=== PATIENT | male | born 1960 | race American Indian/Alaskan Native ===

== ENCOUNTER 2022-05-15 13:30 | Inpatient (IN) | payer SELFPAY ==
--- NOTE | 2022-05-15 14:04 | Event Note ---
Date: 05/15/22 Medical screening examination note: 61-year-old gentleman brought to the hospital by EMS with a complaint of nonspecific chest pain. Patient is awake and alert, protecting airway, and moving 4 extremities. Obtain appropriate laboratory studies, EKG, x-ray the chest. EMS documentation not available at time of chart dictation Detailed history and physical to be performed by myself or oncoming ER provider
--- NOTE | 2022-05-15 14:42 | XRay Report ---
CHEST 2 VIEWS INDICATION / CLINICAL INFORMATION: Chest Pain. COMPARISON: None available. FINDINGS: SUPPORT DEVICES: None. HEART / MEDIASTINUM: Mild cardiomegaly and tortuosity of the aorta. Prior median sternotomy. LUNGS / PLEURA: No significant pulmonary or pleural abnormality. No pneumothorax. ADDITIONAL FINDINGS: No significant additional findings. IMPRESSION: 1. Mild cardiomegaly and tortuosity of the aorta. No acute process identified. Signer Name: Kaitlyn Leach MD Signed: 05/15/2022 2:38 PM Workstation Name: [email or web address]
[2022-05-15 14:57] LABS: Eosinophils # (Auto) 0.2 K/mm3 (0.0-0.4); Eosinophils % (Auto) 3.8 % (0.0-4.3); Hematocrit 36.9 % (35.5-45.6); Hemoglobin 12.2 gm/dl (11.8-15.2); Lymphocytes # (Auto) 1.3 K/mm3 (1.2-5.4); Lymphocytes % (Auto) 28.2 % (13.4-35.0); Mean Corpuscular HGB Conc 33 % (32-34); Mean Corpuscular Volume 91 fl (84-94); Monocytes # (Auto) 0.5 K/mm3 (0.0-0.8); Platelet Count 145 K/mm3 (140-440); Red Blood Count 4.05 M/mm3 (3.65-5.03); Red Cell Distribution Width 15.4 % (13.2-15.2)
[2022-05-15 15:06] LABS: INR 0.91 (0.87-1.13); Partial Thromboplastin Time 27.5 Sec. (24.2-36.6)
[2022-05-15] MEDS ORDERED: PANTOPRAZOLE 40 MG INJ IV ONE (15:27)
[2022-05-15] MEDS ORDERED: NITROGLYCERIN 0.4 MG TAB SUBL SL PRN (15:27)
--- NOTE | 2022-05-15 15:29 | Emergency Department Report ---
ED General Adult HPI - General Chief complaint: Chest Pain Stated complaint: CHEST PAIN Time Seen by Provider: 05/15/22 14:03 Source: patient, EMS ( EMS documentation not available at time of chart dictation ), RN notes reviewed Mode of arrival: Stretcher Limitations: No Limitations, Other (The patient is a poor historian) - History of Present Illness Initial comments: The patient was evaluated in the emergency department for symptoms described in the history of present illness. He/she was evaluated in the context of the global COVID-19 pandemic, which necessitated consideration that the patient might be at risk for infection with the virus that causes COVID-19. Institutional protocols and algorithms that pertain to the evaluation of patients at risk for COVID-19 are in a state of rapid change based on information released by regulatory bodies including the CDC and federal and state organizations. These policies and algorithms were followed during the patient's care in the emergency department. Please note that these policies, procedures and recommendations changed on a rapid basis. This is a 61-year-old gentleman with a body mass index of 37, additional past medical history of hypertension, high cholesterol, CAD, with multiple stents. 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 He has recently relocated to this state from [place]. He reports that he ran out of his medications, which include potassium, metoprolol, Flomax, eliquis, Lasix, atorvastatin and Plavix. He does not know why he takes Eliquis. He presents to the department today with a complaint of central chest pain, dizziness and lightheadedness, which does not radiate to the back, arms or neck. He denies vomiting and diaphoresis. He feels lightheaded like he might pass out. He reports multiple recent truck trips and drives about a month to a month and a half ago. He is not currently on a CPAP. He denies hematemesis and bright red blood per rectum. He has not used erectile dysfunction medication recently. No recent cardiac restratification, stress test or catheterization that he is aware of. He does not have a local primary care doctor or ski technician. He reports that he ran out of his medications about 9 days ago. He reports that he is currently staying with a friend. -: Gradual Location: chest Severity scale (0 -10): 6 Consistency: intermittent Improves with: none Worsens with: none - Related Data Allergies Allergy/AdvReac Type Severity Reaction Status Date / Time No Known Allergies Allergy Verified 05/15/22 19:07 ED Review of Systems ROS: Stated complaint: CHEST PAIN Other details as noted in HPI Constitutional: malaise, weakness. denies: fever Eyes: denies: eye discharge ENT: denies: epistaxis Respiratory: shortness of breath. denies: cough Cardiovascular: orthopnea, other (Lightheadedness and near syncope). denies: chest pain Gastrointestinal: denies: abdominal pain, hematemesis, melena, hematochezia Musculoskeletal: denies: back pain Neurological: denies: weakness ED Past Medical Hx - Past Medical History Previous Medical History?: Yes Hx Hypertension: Yes Additional medical history: CARDIAC STENTS ED Physical Exam - General Limitations: No Limitations General appearance: alert, in no apparent distress, obese - Head Head exam: Present: atraumatic, normocephalic - Eye Eye exam: Present: normal appearance, EOMI. Absent: nystagmus - ENT ENT exam: Present: normal exam, normal orophraynx, mucous membranes moist, normal external ear exam - Neck Neck exam: Present: normal inspection, full ROM. Absent: tenderness, meningismus - Respiratory Respiratory exam: Present: decreased breath sounds. Absent: respiratory distress, wheezes, rales, rhonchi, stridor, accessory muscle use - Cardiovascular Cardiovascular Exam: Present: normal rhythm, bradycardia, normal heart sounds, JVD. Absent: tachycardia, irregular rhythm, systolic murmur, diastolic murmur, rubs, gallop - GI/Abdominal GI/Abdominal exam: Present: soft. Absent: distended, tenderness, guarding, rebound, rigid, pulsatile mass - Rectal Rectal exam: Present: deferred - Extremities Exam Extremities exam: Present: normal inspection (Right lower extremity status post saphenous vein harvest. Scar site is chronic, healing well), full ROM, pedal edema (3+ edema in the bilateral lower extremities), other (2+ pulses noted in the bilateral upper and lower extremities. There is no palpable cord. negative Homans sign. Muscular compartments are soft. The pelvis is stable.). Absent: calf tenderness - Back Exam Back exam: Present: normal inspection. Absent: tenderness, CVA tenderness (R), CVA tenderness (L), paraspinal tenderness, vertebral tenderness - Neurological Exam Neurological exam: Present: alert, oriented X3, other (No facial droop. Tongue midline. Extraocular movements intact bilaterally. Facial sensation intact to light touch in V1, V2, V3 distribution bilaterally. 5 and a 5 strength in 4 extremities. Sensation intact to light touch in 4 extremities.). Absent: motor sensory deficit - Psychiatric Psychiatric exam: Present: normal affect, normal mood - Skin Skin exam: Present: warm, dry, intact, normal color. Absent: rash ED Course Vital Signs 05/15/22 05/15/22 05/15/22 13:31 13:55 14:01 Temperature 97.6 F Pulse Rate 60 57 L 55 L Respiratory 16 13 19 Rate Blood Pressure Blood Pressure 160/90 [Left] O2 Sat by Pulse 98 98 97 Oximetry 05/15/22 05/15/22 05/15/22 14:16 14:31 14:45 Temperature Pulse Rate 55 L 60 53 L Respiratory 15 21 16 Rate Blood Pressure Blood Pressure [Left] O2 Sat by Pulse 98 96 98 Oximetry 05/15/22 05/15/22 05/15/22 15:01 15:15 15:31 Temperature Pulse Rate 60 55 L 54 L Respiratory 20 19 17 Rate Blood Pressure Blood Pressure [Left] O2 Sat by Pulse 96 94 98 Oximetry 05/15/22 05/15/22 05/15/22 15:43 15:45 16:01 Temperature Pulse Rate 52 L 55 L Respiratory 18 19 Rate Blood Pressure Blood Pressure [Left] O2 Sat by Pulse 100 98 99 Oximetry 05/15/22 05/15/22 05/15/22 16:15 16:31 16:45 Temperature Pulse Rate 51 L 55 L 54 L Respiratory 17 19 19 Rate Blood Pressure 208/113 208/113 198/110 Blood Pressure [Left] O2 Sat by Pulse 99 98 98 Oximetry 05/15/22 05/15/22 05/15/22 17:00 17:15 17:31 Temperature Pulse Rate 55 L 61 57 L Respiratory 20 23 13 Rate Blood Pressure 208/113 198/110 Blood Pressure [Left] O2 Sat by Pulse 98 94 98 Oximetry 05/15/22 05/15/22 05/15/22 17:45 18:00 18:15 Temperature Pulse Rate 69 75 62 Respiratory 20 17 19 Rate Blood Pressure 187/131 198/110 187/131 Blood Pressure [Left] O2 Sat by Pulse 97 97 98 Oximetry 05/15/22 05/15/22 05/15/22 18:31 18:45 19:01 Temperature Pulse Rate 65 64 62 Respiratory 17 20 17 Rate Blood Pressure 187/131 178/102 187/131 Blood Pressure [Left] O2 Sat by Pulse 97 97 98 Oximetry - Reevaluation(s) Reevaluation #1: 05/15/22 16:49 Differential diagnosis, including but not limited to: Pulmonary hypertension, obstructive sleep apnea, acute coronary syndrome, GERD, gastritis, hiatal hernia, pneumonia, costochondritis, right-sided congestive heart failure, pulmonary embolism, obstructive sleep apnea Assessment and plan: 61-year-old gentleman complaining of chest pain, shortness of breath, lightheadedness. He most likely has undiagnosed obstructive sleep apnea, and right-sided cardiac dysfunction. He is not currently tachycardic, tachypneic, he does show evidence of decompensated congestive heart failure, manifested by JVD, and lower extremity edema. His EKG is abnormal, with a left axis deviation, and left anterior fascicular block. 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 A D-dimer is elevated, and a CT scan of the chest will be obtained. He is also found to be hypertensive, so we will administer Lasix, as well as hydralazine. We will reassess after initial data points result. Recommend admission to the medical service for hypertensive urgency, acute chest pain, acute congestive heart failure. He is agreeable to admission and hospitalization. Reevaluation #2: 05/15/22 16:52 Aspirin given by EMS 05/15/22 19:39 Dr Nils Plummer to admit to [facility] ED Medical Decision Making - Lab Data Result diagrams: 05/15/22 14:45 05/15/22 14:45 Vital Signs 05/15/22 05/15/22 05/15/22 13:31 13:55 14:01 Temperature 97.6 F Pulse Rate 60 57 L 55 L Respiratory 16 13 19 Rate Blood Pressure Blood Pressure 160/90 [Left] O2 Sat by Pulse 98 98 97 Oximetry 05/15/22 05/15/22 05/15/22 14:16 14:31 14:45 Temperature Pulse Rate 55 L 60 53 L Respiratory 15 21 16 Rate Blood Pressure Blood Pressure [Left] O2 Sat by Pulse 98 96 98 Oximetry 08/09/2405/15/22 05/15/22 15:01 15:15 15:31 Temperature Pulse Rate 60 55 L 54 L Respiratory 20 19 17 Rate Blood Pressure Blood Pressure [Left] O2 Sat by Pulse 96 94 98 Oximetry 05/15/22 05/15/22 05/15/22 15:43 15:45 16:01 Temperature Pulse Rate 52 L 55 L Respiratory 18 19 Rate Blood Pressure Blood Pressure [Left] O2 Sat by Pulse 100 98 99 Oximetry 05/15/22 16:15 Temperature Pulse Rate 51 L Respiratory 17 Rate Blood Pressure 208/113 Blood Pressure [Left] O2 Sat by Pulse 99 Oximetry - EKG Data -: EKG Interpreted by [facility] EKG shows normal: sinus rhythm Rate: normal - EKG Data When compared to previous EKG there are: previous EKG unavailable 05/15/22 16:45 There is no prior EKG available for comparison The EKG is interpreted at 13: 51 Bradycardia, sinus rhythm, rate 57 bpm. Left axis deviation, left anterior fascicular block, first-degree AV block, left ventricular hypertrophy. This is an abnormal EKG. This is not a STEMI - Radiology Data Radiology results: pending, report reviewed, image reviewed CHEST 2 VIEWS INDICATION / CLINICAL INFORMATION: Chest Pain. COMPARISON: None available. FINDINGS: SUPPORT DEVICES: None. HEART / MEDIASTINUM: Mild cardiomegaly and tortuosity of the aorta. Prior median sternotomy. LUNGS / PLEURA: No significant pulmonary or pleural abnormality. No pneumothorax. ADDITIONAL FINDINGS: No significant additional findings. IMPRESSION: 1. Mild cardiomegaly and tortuosity of the aorta. No acute process identified. Signer Name: Kaitlyn Leach MD Signed: 05/15/2022 1:38 PM Workstation Name: [id number] Critical care attestation.: If time is entered above; I have spent that time in minutes in the direct care of this critically ill patient, excluding procedure time. ED Disposition Clinical Impression: Acute chest pain, Volume overload, Hypertensive urgency Disposition: 09 ADMITTED INPATIENT Is pt being admited?: Yes Does the pt Need Aspirin: No (Aspirin given by EMS) Condition: Stable Heart Score - HEART Score History: Moderately suspicious EKG: Non-specific Age: 45-65 Risk factors: > 3 risk factors or hx of atherosclerotic disease Troponin: < normal limit HEART Score: 5 - EKG Read Time Time EKG Completed: 13:51 EKG Read Time: 13:52 - Critical Actions Critical Actions: 4-6 pts:12-16.6% risk of adverse cardiac event. Should be admitted
[2022-05-15 16:43] LABS: Alanine Aminotransferase 23 units/L (7-56); Albumin 3.4 g/dL (3.9-5); BUN/Creatinine Ratio 15; Blood Urea Nitrogen 18 mg/dL (9-20); Calcium 8.5 mg/dL (8.4-10.2); Hemolysis Index 10
[2022-05-15] MEDS ORDERED: hydrALAZINE 20 MG/1 ML INJ IV ONE (16:45)
[2022-05-15] MEDS ORDERED: FUROSEMIDE 40 MG/4 ML INJ IV ONE (16:50)
--- NOTE | 2022-05-15 18:43 | Cat Scan Report ---
CTA CHEST WITH CONTRAST INDICATION / CLINICAL INFORMATION: Acute chest pain and dizziness 100ml of [id number]. TECHNIQUE: Axial CT images were obtained through the chest after injection of 100 cc Omnipaque 350 IV contrast. 3 plane MIP and/or 3D reconstructions were produced. All CT scans at this location are per formed using CT dose reduction for ALARA by means of automated exposure control. COMPARISON: None available. FINDINGS: PULMONARY ARTERIES: No central PE. THORACIC AORTA: No significant abnormality. HEART: Cardiomegaly CORONARY ARTERY CALCIFICATION: CABG MEDIASTINUM / MAGALIS: No significant abnormality. PLEURA: No pleural effusion. No pneumothorax. LUNGS: No acute air space or interstitial disease. ADDITIONAL FINDINGS: None. UPPER ABDOMEN: Bilateral renal cysts. There is nodular thickening of bilateral adrenal glands. SKELETAL STRUCTURES: Scattered degeneration. IMPRESSION: 1. No central pulmonary embolism. 2. No acute findings. 3. Additional findings as above. Signer Name: Shun Harrington DO Signed: 05/15/2022 6:39 PM Workstation Name: [id number]
[2022-05-15] MEDS ORDERED: MORPHINE 4 MG/1 ML INJ IV PRN (19:05)
[2022-05-15] MEDS ORDERED: ONDANSETRON 4 MG/2 ML INJ IV PRN ×2 (19:05→22:03)
[2022-05-15] MEDS ORDERED: MORPHINE 2 MG/1 ML INJ IV PRN (19:05)
[2022-05-15] MEDS ORDERED: ACETAMINOPHEN 325 MG TAB PO PRN ×2 (19:05→22:03)
[2022-05-15] MEDS ORDERED: MORPHINE 4 MG/1 ML INJ IV ONE (20:06)
[2022-05-15] MEDS ORDERED: HYDROmorphone 0.5 MG/0.5 ML INJ IV PRN (22:03)
[2022-05-15] MEDS ORDERED: METOCLOPRAMIDE 10 MG/2 ML INJ IV PRN (22:03)
[2022-05-15] MEDS ORDERED: oxyCODONE /ACETAMINOPHEN 5-325MG TAB PO PRN (22:03)
[2022-05-15] MEDS ORDERED: hydrALAZINE 20 MG/1 ML INJ IV PRN (22:12)
[2022-05-15] MEDS: VALSARTAN 160MG TAB PO SCH (22:45)
[2022-05-16 07:02] LABS: Basophils % (Auto) 0.7 % (0.0-1.8); Eosinophils # (Auto) 0.2 K/mm3 (0.0-0.4); Eosinophils % (Auto) 3.8 % (0.0-4.3); Hematocrit 40.1 % (35.5-45.6); Hemoglobin 13.1 gm/dl (11.8-15.2); Lymphocytes % (Auto) 21.7 % (13.4-35.0); Mean Corpuscular HGB Conc 33 % (32-34); Mean Corpuscular Volume 91 fl (84-94); Monocytes # (Auto) 0.5 K/mm3 (0.0-0.8); Monocytes % (Auto) 10.3 % (0.0-7.3); Platelet Count 151 K/mm3 (140-440); Red Blood Count 4.41 M/mm3 (3.65-5.03); Red Cell Distribution Width 15.2 % (13.2-15.2)
[2022-05-16 07:31] LABS: Alanine Aminotransferase 21 units/L (7-56); Albumin 3.5 g/dL (3.9-5); BUN/Creatinine Ratio 13; Blood Urea Nitrogen 13 mg/dL (9-20); Calcium 8.7 mg/dL (8.4-10.2); Hemolysis Index 6
--- NOTE | 2022-05-16 08:28 | History and Physical Report ---
History of Present Illness Date of examination: 05/15/22 Date of admission: 05/15/22 19:05 Chief complaint: Chest pain since a.m. History of present illness: 51-year-old male normal with history of hypertension, cholesterol, coronary artery disease and multiple stents comes in for retrosternal chest pain. No diaphoresis no shortness of breath. 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 No radiation to the back. Noted in the left. Chest pain is about 8 on a scale of 1-10. No exacerbating or relieving factors. Patient is on Eliquis but does not know any reason for being on Eliquis. - Past Medical History --Previous Medical History?: Yes --Hypertension: Yes --Additional medical history: CARDIAC STENTS - Past surgical history --CARDIAC STENTS - Family history --Htn -Social history --smoking or alcohol. Review of Systems ROS: Stated complaint: CHEST PAIN Other details as noted in HPI Constitutional: malaise, weakness. denies: fever Eyes: denies: eye discharge ENT: denies: epistaxis Respiratory: shortness of breath. denies: cough Cardiovascular: orthopnea, other (Lightheadedness and near syncope). denies: chest pain Gastrointestinal: denies: abdominal pain, hematemesis, melena, hematochezia Musculoskeletal: denies: back pain Neurological: denies: weakness Medications and Allergies Allergies Allergy/AdvReac Type Severity Reaction Status Date / Time Penicillins Allergy Unknown Verified 05/15/22 20:26 Active Meds: Active Medications Acetaminophen (Acetaminophen 325 Mg Tab) 650 mg PO Q4H PRN PRN Reason: Pain MILD(1-3)/Fever >100.5/HERBERT Famotidine (Famotidine 20 Mg Tab) 20 mg PO BID MARIN Hydralazine HCl (Hydralazine 20 Mg/1 Ml Inj) 10 mg IV Q3H PRN PRN Reason: Blood Pressure Hydromorphone HCl (Hydromorphone 0.5 Mg/0.5 Ml Inj) 0.5 mg IV Q3H PRN PRN Reason: Pain , Severe (7-10) Metoclopramide HCl (Metoclopramide 10 Mg/2 Ml Inj) 10 mg IV Q6H PRN PRN Reason: Nausea And Vomiting Morphine Sulfate (Morphine 2 Mg/1 Ml Inj) 2 mg IV Q4H PRN PRN Reason: Pain, Moderate (4-6) Last Admin: 05/16/22 07:35 Dose: 2 mg Nitroglycerin (Nitroglycerin 0.4 Mg Tab Subl) 0.4 mg SL .Q5MIN PRN PRN Reason: Chest Pain Ondansetron HCl (Ondansetron 4 Mg/2 Ml Inj) 4 mg IV Q8H PRN PRN Reason: Nausea And Vomiting Oxycodone/Acetaminophen (Oxycodone /Acetaminophen 5-325mg Tab) 1 tab PO Q6H PRN PRN Reason: Pain, Moderate (4-6) Sodium Chloride (Sodium Chloride 0.9% 10 Ml Flush Syringe) 10 ml IV BID MARIN Sodium Chloride (Sodium Chloride 0.9% 10 Ml Flush Syringe) 10 ml IV PRN PRN PRN Reason: LINE FLUSH Valsartan (Valsartan 160mg Tab) 160 mg PO Q12HR MARIN Last Admin: 05/15/22 22:45 Dose: 160 mg Exam - Constitutional Vitals: Temp Pulse Resp BP Pulse Ox 97.7 F 64 20 161/102 98 05/16/22 04:04 05/16/22 07:42 05/16/22 07:42 05/16/22 07:42 05/16/22 04:04 General appearance: Present: no acute distress, well-nourished - EENT Eyes: Present: PERRL ENT: hearing intact, clear oral mucosa - Neck Neck: Present: supple, normal ROM - Respiratory Respiratory effort: normal Respiratory: bilateral: CTA - Cardiovascular Heart rate: 78 Rhythm: regular Heart Sounds: Present: S1 & S2. Absent: rub, click - Extremities Extremities: pulses symmetrical, No edema Peripheral Pulses: within normal limits - Abdominal General gastrointestinal: Present: soft, non-tender, non-distended, normal bowel sounds Male genitourinary: Present: normal - Integumentary Integumentary: Present: clear, warm, dry - Musculoskeletal Musculoskeletal: gait normal, strength equal bilaterally - Psychiatric Psychiatric: appropriate mood/affect, intact judgment & insight - Neurologic Neurologic: CNII-XII intact, moves all extremities HEART Score - HEART Score History: Highly suspicious EKG: Non-specific Age: 45-65 Risk factors: > 3 risk factors or hx of atherosclerotic disease Troponin: Troponin T < 0.010 ng/mL (0.00-0.029) 05/16/22 06:19 Troponin: < normal limit HEART Score: 6 - Critical Actions Critical Actions: 4-6 pts:12-16.6% risk of adverse cardiac event. Should be admitted Results - Labs CBC & Chem 7: 05/16/22 06:19 05/16/22 06:19 Labs: Laboratory Last Values WBC 4.6 K/mm3 (4.5-11.0) 05/16/22 06:19 RBC 4.41 M/mm3 (3.65-5.03) 05/16/22 06:19 Hgb 13.1 gm/dl (11.8-15.2) 05/16/22 06:19 Hct 40.1 % (35.5-45.6) 05/16/22 06:19 MCV 91 fl (84-94) 05/16/22 06:19 MCH 30 pg (28-32) 05/16/22 06:19 MCHC 33 % (32-34) 05/16/22 06:19 RDW 15.2 % (13.2-15.2) 05/16/22 06:19 Plt Count 151 K/mm3 (140-440) 05/16/22 06:19 Lymph % (Auto) 21.7 % (13.4-35.0) 05/16/22 06:19 [place] % (Auto) 10.3 % (0.0-7.3) H 05/16/22 06:19 Eos % (Auto) 3.8 % (0.0-4.3) 05/16/22 06:19 Baso % (Auto) 0.7 % (0.0-1.8) 05/16/22 06:19 Lymph # (Auto) 1.0 K/mm3 (1.2-5.4) L 05/16/22 06:19 [place] # (Auto) 0.5 K/mm3 (0.0-0.8) 05/16/22 06:19 Eos # (Auto) 0.2 K/mm3 (0.0-0.4) 05/16/22 06:19 Baso # (Auto) 0.0 K/mm3 (0.0-0.1) 05/16/22 06:19 Seg Neutrophils % 63.5 % (40.0-70.0) 05/16/22 06:19 Seg Neutrophils # 3.0 K/mm3 (1.8-7.7) 05/16/22 06:19 PT 13.2 Sec. (12.2-14.9) 05/15/22 14:45 INR 0.91 (0.87-1.13) 05/15/22 14:45 APTT 27.5 Sec. (24.2-36.6) 05/15/22 14:45 D-Dimer 1950 ng/mlDDU (0-234) H 05/15/22 15:40 Sodium 142 mmol/L (137-145) 05/16/22 06:19 Potassium 3.5 mmol/L (3.6-5.0) L 05/16/22 06:19 Chloride 102.0 mmol/L (98-107) 05/16/22 06:19 Carbon Dioxide 27 mmol/L (22-30) 05/16/22 06:19 Anion Gap 17 mmol/L 05/16/22 06:19 BUN 13 mg/dL (9-20) 05/16/22 06:19 Creatinine 1.0 mg/dL (0.8-1.3) 05/16/22 06:19 Estimated GFR > 60 ml/min 05/16/22 06:19 BUN/Creatinine Ratio 13 % 05/16/22 06:19 Glucose 189 mg/dL (75-100) H 05/16/22 06:19 Calcium 8.7 mg/dL (8.4-10.2) 05/16/22 06:19 Magnesium 1.90 mg/dL (1.7-2.3) 05/15/22 14:45 Total Bilirubin 0.30 mg/dL (0.1-1.2) 05/16/22 06:19 AST 11 units/L (5-40) 05/16/22 06:19 ALT 21 units/L (7-56) 05/16/22 06:19 Alkaline Phosphatase 92 units/L (35-129) 05/16/22 06:19 Total Creatine Kinase 122 units/L (55-170) 05/15/22 14:45 Troponin T < 0.010 ng/mL (0.00-0.029) 05/16/22 06:19 NT-Pro-B Natriuret Pep 222.7 pg/mL (0-900) 05/15/22 14:45 Total Protein 7.1 g/dL (6.3-8.2) 05/16/22 06:19 Albumin 3.5 g/dL (3.9-5) L 05/16/22 06:19 Albumin/Globulin Ratio 1.0 % 05/16/22 06:19 TSH 1.090 mlU/mL (0.270-4.200) 05/15/22 14:45 - Imaging and Cardiology EKG: report reviewed (Sinus bradycardia, heart rate of 57/min no acute ST-T wave changes left anterior fascicular block) Assessment and Plan Advance Directives: Yes (Full code) VTE prophylaxis?: Chemical Plan of care discussed with patient/family: Yes - Patient Problems (1) Hypertensive emergency Current Visit: Yes Status: Acute Plan to address problem: Patient initiated on valsartan 160 every 12 and carvedilol 12.5 every 12 Hydralazine 10 mg every 3 IV as needed for blood pressure more than 160/95 (2) Advance care planning Current Visit: Yes Status: Acute Plan to address problem: Disease education conducted care plan discussed diagnosis discussed and progno sis discussed. Patient acknowledged understanding. Care plan +30 minutes. Patient is full code. (3) Coronary artery disease Current Visit: Yes Status: Chronic Qualifiers: Coronary Disease-Associated Artery/Lesion type: false pass artery [place] vs. transplanted heart: false pass heart Plan to address problem: On Eliquis and statins and metoprolol (4) Hyperlipidemia Current Visit: Yes Status: Chronic Qualifiers: Hyperlipidemia type: mixed hyperlipidemia Qualified Code(s): E78.2 - Mixed hyperlipidemia Plan to address problem: On high-dose Lipitor 80 mg once a day (5) CHF (congestive heart failure) Current Visit: Yes Status: Chronic Qualifiers: Heart failure type: combined systolic and diastolic Plan to address problem: On Lasix 40 and potassium 20 mEq (6) DVT prophylaxis Current Visit: Yes Status: Acute Plan to address problem: On anticoagulation GI prophylaxis (7) Acute coronary syndrome Current Visit: Yes Status: Acute Plan to address problem: Serial troponins Stress test not available on Saturdays and Sundays Will get stress test as an outpatient if troponins are negative
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
[2022-05-16] MEDS: VALSARTAN 160MG TAB PO SCH (09:57)
[2022-05-16 09:59] LABS: Hematocrit 40.7 % (35.5-45.6); Mean Corpuscular HGB Conc 32 % (32-34); Mean Corpuscular Volume 92 fl (84-94); Platelet Count 147 K/mm3 (140-440); Red Blood Count 4.45 M/mm3 (3.65-5.03); Red Cell Distribution Width 15.4 % (13.2-15.2)
[2022-05-16] MEDS ORDERED: METOPROLOL SUCCINATE XL 50 MG TAB PO SCH (10:00)
[2022-05-16] MEDS ORDERED: APIXABAN 5 MG TAB PO SCH (10:00)
[2022-05-16] MEDS ORDERED: FAMOTIDINE 20 MG TAB PO SCH (10:00)
[2022-05-16 10:09] LABS: INR 0.88 (0.87-1.13)
[2022-05-16 10:10] LABS: Partial Thromboplastin Time 25.1 Sec. (24.2-36.6)
--- NOTE | 2022-05-16 17:00 | Discharge Summary ---
Providers - Providers Date of Admission: 05/15/22 19:05 Date of discharge: 05/16/22 Attending physician: WENDY CAMPOS 05/15/22 22:16 Consult to Physician [CONS] Routine Comment: Consulting Provider: VAZQUEZ VERMA Physician Instructions: Reason For Exam: Hypertensive emergency/ACS Primary care physician: [facility] Hospitalization Condition: Stable - Discharge Diagnoses (1) Hypertensive emergency Status: Acute (2) Advance care planning Status: Acute (3) Coronary artery disease Status: Chronic Qualifiers: Coronary Disease-Associated Artery/Lesion type: [place] artery [place] vs. transplanted heart: [place] heart (4) Hyperlipidemia Status: Chronic Qualifiers: Hyperlipidemia type: mixed hyperlipidemia Qualified Code(s): E78.2 - Mixed hyperlipidemia (5) CHF (congestive heart failure) Status: Chronic Qualifiers: Heart failure type: combined systolic and diastolic (6) DVT prophylaxis Status: Acute (7) Acute coronary syndrome Status: Acute Exam - Constitutional Vitals: Temp Pulse Resp BP Pulse Ox 97.9 F 64 20 146/83 96 05/16/22 08:27 05/16/22 09:56 05/16/22 07:42 05/16/22 09:56 05/16/22 08:27 Plan Follow up with: LINETTE HAQUE MD [Primary Care Provider] - 3-5 Days AUREILO SAMAYOA MD [Staff Physician] - 7 Days
[2022-05-16 17:02] VITALS: BP 150/91
[2022-05-17] MEDS ORDERED: ASPIRIN 81 MG TAB CHEW PO SCH (10:00)
--- NOTE | 2022-05-17 14:38 | Electrocardiograph Report ---
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
--- NOTE | 2022-05-17 14:41 | Electrocardiograph Report ---
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
== END 2022-05-16 18:35 | disposition home or self-care (01) | DRG 305 ==
LOC: ED 13:30 → 4A 19:05 → OBSVTOIN 19:05 → 4A 20:09
PROVIDERS: ADMIT Internal Medicine; ATTEND Internal Medicine
DX: I16.1 Hypertensive emergency (principal); I50.40 Unspecified combined systolic (congestive) and diastolic (congestive) heart failure; E87.70 Fluid overload, unspecified; I25.10 Atherosclerotic heart disease of native coronary artery without angina pectoris; E78.00 Pure hypercholesterolemia, unspecified; E78.2 Mixed hyperlipidemia; I11.0 Hypertensive heart disease with heart failure; E66.9 Obesity, unspecified; Z68.37 Body mass index [BMI] 37.0-37.9, adult; Z91.19 Patient's noncompliance with other medical treatment and regimen
CPT/HCPCS: 36415; 71046; 71275; 80053; 82550; 82565; 83735; 83880; 84443; 84484; 85025; 85027; 85379; 85610; 85730; 93005; G0378; C9113; J0360; J1940; J2270; Q9967